=== PATIENT | male | born 1985 | race Caucasian/White ===

== ENCOUNTER → 2019-02-28 16:59 | Outpatient (CLI) | payer OTHER, MEDICAID, SELFPAY ==
--- NOTE | 2019-02-28 17:04 | DI.RAD.S_ITS ---
PROCEDURE: XR FINGER RT MIN 2V INDICATIONS: proximal phalanx pain TECHNIQUE: AP hand, 2 views of the second finger(s) acquired. COMPARISON: None. FINDINGS: Bones: No fractures or dislocations. No suspicious bony lesions. Soft tissues: No suspicious soft tissue calcifications. IMPRESSION: No trauma found. Dictated by: Norris Henderson M.D. on 02/28/2019 at 17:23 Approved by: Norris Henderson M.D. on 02/28/2019 at 17:23
== END ==
PROVIDERS: Visit Provider Physician Assistant
DX: M79.644 Pain in right finger(s) (principal)
CPT/HCPCS: 73140

== ENCOUNTER 2019-05-18 11:54 | Emergency (ER) | payer OTHER, MEDICAID, SELFPAY ==
[2019-05-18 12:18] VITALS: BP 134/64; PULSE 77; TEMP 36.7; O2SAT 99
[2019-05-18 12:22] VITALS: PULSE 77; TEMP 36.7; O2SAT 99; BMI 72.5
[2019-05-18 12:29] LABS: Add Manual Diff / Slide Review NO; Basophils Absolute Auto 100 /uL (0-100); Basophils Percent Auto 0.7 % (0-2); Eosinophils Absolute Auto 200 /uL (0-450); Eosinophils Percent Auto 2.6 % (2-4); Hematocrit 43.4 % (41-53); Hemoglobin 14.7 g/dL (13.5-17.5); Lymphocytes Absolute Auto 1500 /uL (1100-4500); Lymphocytes Percent Auto 16.9 % (25-40); Mean Corpuscular HGB Conc 33.8 % (30-36); Mean Corpuscular Hemoglobin 29.1 PG (26-34); Mean Corpuscular Volume 85.9 fL (80-100); Monocytes Absolute Auto 1100 /uL (0-900); Monocytes Percent Auto 12.8 % (3-14); Neutrophils Absolute Auto 5800 /uL (1500-7000); Platelet Count 265 X10^3/uL (150-400); Red Blood Cell Count 5.06 X10^6/uL (4.5-5.9); Red Cell Distribution Width 14.5 % (11.6-14.8); White Blood Cell Count 8.6 X10^3/uL (4.5-11.0)
--- NOTE | 2019-05-18 12:36 | ED.ABDPAIN ---
HPI - Abdominal Pain <JAYME Scruggs - Last Filed: 05/18/19 15:41> General Chief Complaint: Abdominal Pain Stated Complaint: flu Time Seen by Provider: 05/18/19 12:00 Source: patient Mode of arrival: Ambulatory Limitations: no limitations History of Present Illness HPI narrative: The patient is a 33-year-old male nonsmoker with history of morbid obesity who presents with his and for chief complaint of diarrhea for 4 days with associated abdominal cramping. He denies any objective fevers at home, but complains of muscle aches, chills sweats. He denies any chest pain or shortness of breath. He does have a history of asthma as well. He denies any ear pain or sore throat. He states he feels like he has the flu. He has not taken anything to feel better. He denies any chest pain or shortness of breath. He states that his diarrhea is watery, he had 3-4 episodes already today. Denies any dysuria urgency or frequency. Denies any history of abdominal surgeries. Related Data Home Medications Medication Instructions Recorded Confirmed hydroxyzine HCl 25 mg tablet 25 mg PO BID PRN 02/19/19 02/28/19 buspirone 15 mg PO DAILY 05/18/19 05/18/19 Previous Rx's Medication Instructions Recorded albuterol sulfate 90 mcg/actuation 2 puff INHALATION Q4-6H PRN #8.5 12/01/18 aerosol inhaler gram valsartan 160 1 tab PO DAILY #30 tab 12/01/18 mg-hydrochlorothiazide 25 mg tablet diclofenac sodium 1 % topical gel 2 gram TOP QID #100 gram 02/19/19 Allergies Allergy/AdvReac Type Severity Reaction Status Date / Time No Known Drug Allergies Allergy Verified 05/18/19 12:22 Review of Systems <JAYME Scruggs - Last Filed: 05/18/19 15:41> Review of Systems Narrative: GENERAL: See HPI HEENT: Denies sinus pain, ear pain, sore throat, difficulty swallowing, dizziness. RESPIRATORY: Denies dyspnea, cough, wheezing, hemoptysis, sputum. CARDIOVASCULAR: Denies chest pain, palpitations, orthopnea, edema, GASTROINTESTINAL: See HPI : Denies dysuria, frequency, incontinence, hematuria, urinary retention. MUSCULOSKELETAL: denies weakness, joint pain, or bony pain SKIN: Denies rash, skin lesions, or other NEUROLOGIC: Denies weakness, headache, numbness, change in speech, confusion, seizures, incoordination. PSYCHIATRIC: No concerning psychosocial issues. 12 point review of systems is negative except for those stated above Patient History <MAURA Scruggs-NAIN - Last Filed: 05/18/19 15:41> Social History Smoking Status: Never smoker Smoking Status: Never smoker Exam <JAYME Scruggs - Last Filed: 05/18/19 15:41> Narrative Exam Narrative: GENERAL: Morbidly obese male in no acute distress HEAD: Atraumatic. Normocephalic. No temporal or scalp tenderness. EYES: Pupils equal round and reactive. Extraocular motions intact. No scleral icterus. No injection or drainage. ENT: Nose without bleeding, purulent drainage or septal hematoma. Throat without erythema, tonsillar hypertrophy or exudate. Uvula midline. Airway patent. NECK: Trachea midline. No JVD or lymphadenopathy. Supple, nontender, no meningeal signs. CARDIOVASCULAR: Regular rate and rhythm RESPIRATORY: Clear to auscultation. Breath sounds equal bilaterally. No wheezes, rales, or rhonchi. No cough. No increased respiratory effort. No accessory muscle use. GASTROINTESTINAL: Abdomen soft, diffusely tender to palpation, nondistended. No hepato-splenomegaly, or palpable masses. No guarding. Active bowel sounds all 4 quadrants EXTREMITIES: No clubbing, cyanosis, or edema. No joint tenderness, effusion, or edema noted. BACK: Nontender without deformity or crepitance. No flank tenderness. NEURO: AOx3. SKIN: No rash or erythema on visible skin Initial Vital Signs Initial Vital Signs: Vital Signs Temperature 98.0 F 05/18/19 12:18 Pulse Rate 77 05/18/19 12:18 Blood Pressure 134/64 05/18/19 12:18 Pulse Oximetry 99 05/18/19 12:18 <Yanira Shepherd DO - Last Filed: 05/18/19 19:12> Initial Vital Signs Initial Vital Signs: Vital Signs Temperature 98.0 F 05/18/19 12:18 Pulse Rate 77 05/18/19 12:18 Blood Pressure 134/64 05/18/19 12:18 Pulse Oximetry 99 05/18/19 12:18 Course <SILVANA ScruggsP-BC - Last Filed: 05/18/19 15:41> Orders Ordered: ED Orders 05/18/19 12:04 Amylase Stat Complete Blood Count AUTO DIFF Stat Comprehensive Metabolic Panel Stat Lipase Stat Magnesium Stat 05/18/19 12:24 Influenza A & B (PCR) Stat 05/18/19 13:16 GI Panel (Film Array) Stat Discontinued Medications Sodium Chloride (Normal Saline 0.9%) 1,000 mls @ 1,000 mls/hr IV BOLUS ONE Stop: 05/18/19 13:10 Last Infusion: 05/18/19 14:30 Dose: 0 mls/hr Documented by: Admin: 05/18/19 12:58 Dose: 1,000 mls/hr Documented by: MEISENB Sodium Chloride (Normal Saline 0.9%) 1,000 mls @ 250 mls/hr IV CONT FRANC Last Infusion: 05/18/19 15:38 Dose: 0 mls/hr Documented by: Admin: 05/18/19 15:01 Dose: 250 mls/hr Documented by: MEISENB Metoclopramide HCl (Reglan) 10 mg IV NOW ONE Stop: 05/18/19 14:40 Last Admin: 05/18/19 15:01 Dose: 10 mg Documented by: [email or web address] Vital Signs Vital signs: Vital Signs - 8 hr 05/18/19 12:18 05/18/19 12:22 05/18/19 12:59 Temperature 98.0 F 98.0 F Pulse Rate 77 77 62 Respiratory Rate 16 Blood Pressure Blood Pressure [Left Wrist] 134/64 150/74 H Pulse Oximetry 99 99 95 05/18/19 15:38 Temperature 98.4 F Pulse Rate 65 Respiratory Rate Blood Pressure 109/64 Blood Pressure [Left Wrist] Pulse Oximetry 97 <Yanira Shepherd DO - Last Filed: 05/18/19 19:12> Orders Ordered: ED Orders 05/18/19 12:04 Amylase Stat Complete Blood Count AUTO DIFF Stat Comprehensive Metabolic Panel Stat Lipase Stat Magnesium Stat 05/18/19 12:24 Influenza A & B (PCR) Stat 05/18/19 13:16 GI Panel (Film Array) Stat Discontinued Medications Sodium Chloride (Normal Saline 0.9%) 1,000 mls @ 1,000 mls/hr IV BOLUS ONE Stop: 05/18/19 13:10 Last Infusion: 05/18/19 14:30 Dose: 0 mls/hr Documented by: [email or web address] Admin: 05/18/19 12:58 Dose: 1,000 mls/hr Documented by: GIULIANO Sodium Chloride (Normal Saline 0.9%) 1,000 mls @ 250 mls/hr IV CONT FRANC Last Infusion: 05/18/19 15:38 Dose: 0 mls/hr Documented by: Admin: 05/18/19 15:01 Dose: 250 mls/hr Documented by: GIULIANO Metoclopramide HCl (Reglan) 10 mg IV NOW ONE Stop: 05/18/19 14:40 Last Admin: 05/18/19 15:01 Dose: 10 mg Documented by: GIULIANO Vital Signs Vital signs: Vital Signs - 8 hr 05/18/19 12:18 05/18/19 12:22 05/18/19 12:59 Temperature 98.0 F 98.0 F Pulse Rate 77 77 62 Respiratory Rate 16 Blood Pressure Blood Pressure [Left Wrist] 134/64 150/74 H Pulse Oximetry 99 99 95 05/18/19 15:38 Temperature 98.4 F Pulse Rate 65 Respiratory Rate Blood Pressure 109/64 Blood Pressure [Left Wrist] Pulse Oximetry 97 MDM - Abdominal Pain <JAYME Scruggs - Last Filed: 05/18/19 15:41> Lab Data Result diagrams: 05/18/19 12:04 05/18/19 12:04 Labs: Lab Results 05/18/19 05/18/19 05/18/19 Range/Units 12:04 12:04 12:04 WBC 8.6 (4.5-11.0) X10^3/uL RBC 5.06 (4.5-5.9) X10^6/uL Hgb 14.7 (13.5-17.5) g/dL Hct 43.4 (41-53) % MCV 85.9 (80-100) fL MCH 29.1 (26-34) PG MCHC 33.8 (30-36) % RDW 14.5 (11.6-14.8) % Plt Count 265 (150-400) X10^3/uL Neut % (Auto) 67.0 (50-75) % Lymph % (Auto) 16.9 L (25-40) % [place] % (Auto) 12.8 (3-14) % Eos % (Auto) 2.6 (2-4) % Baso % (Auto) 0.7 (0-2) % Neut # (Auto) 5800 (0616-5328) /uL Lymph # (Auto) 1500 (3176-2707) /uL [place] # (Auto) 1100 H (0-900) /uL Eos # (Auto) 200 (0-450) /uL Baso # (Auto) 100 (0-100) /uL Sodium 136 L (137-145) mmol/L Potassium 3.5 (3.4-5.1) mmol/L Chloride 103 (98-107) mmol/L Carbon Dioxide 24 (22-32) mmol/L BUN 9 (9-20) mg/dL Creatinine 1.00 (0.66-1.25) mg/dL Estimated GFR > 60.0 (>60) mL/min BUN/Creatinine Ratio 9.0 (6-22) Glucose 106 H (70-100) mg/dL Calcium 9.0 (8.4-10.2) mg/dL Magnesium 2.0 (1.6-2.3) mg/dL Total Bilirubin 0.6 (0.2-1.3) mg/dL AST 32 (17-59) IU/L ALT 30 (<50) IU/L Alkaline Phosphatase 99 (38-126) U/L Total Protein 7.2 (6.3-8.2) g/dL Albumin 4.1 (3.5-5.0) g/dL Globulin 3.1 (1.7-4.1) g/dL Albumin/Globulin Ratio 1.3 (1.0-2.8) Amylase 36 (30-110) U/L Lipase 41 (23-300) U/L Gastric Fluid pH Gastric Occult Blood Stl C. cayetanensis PCR (Not Detect) Stool Rotavirus (PCR) (Not Detect) Stool Adenovirus (PCR) (Not Detect) Stool Astrovirus (PCR) (Not Detect) Stool Cryptosporidium PCR (Not Detect) Stl E.coli Shiga Tox PCR (Not Detect) St Sh/Enteroin Ecoli PCR (Not Detect) Stool E coli O157 PCR Stl Enterotoxigenic E PCR (Not Detect) Stool EPEC (PCR) (Not Detect) Stl E. histolytica PCR (Not Detect) Stool Giardia Lamblia PCR (Not Detect) Stool Sapovirus (PCR) (Not Detect) Stl P. shigelloides PCR (Not Detect) St Y.enterocolitica PCR (Not Detect) Stool Vibrio (PCR) (Not Detect) Stl Vibrio cholerae PCR (Not Detect) Stl Enteroaggr Ecoli PCR (Not Detect) Stl Norovirus GI/GII PCR (Not Detect) Campylobacter (PCR) (Not Detect) C. difficile Tox (PCR) (Not Detect) Influenza A (RT-PCR) (NEGATIVE) Influenza B (RT-PCR) (NEGATIVE) Salmonella (PCR) (Not Detect) 05/18/19 05/18/19 05/18/19 Range/Units 12:24 13:16 13:20 WBC (4.5-11.0) X10^3/uL RBC (4.5-5.9) X10^6/uL Hgb (13.5-17.5) g/dL Hct (41-53) % MCV (80-100) fL MCH (26-34) PG MCHC (30-36) % RDW (11.6-14.8) % Plt Count (150-400) X10^3/uL Neut % (Auto) (50-75) % Lymph % (Auto) (25-40) % [place] % (Auto) (3-14) % Eos % (Auto) (2-4) % Baso % (Auto) (0-2) % Neut # (Auto) (9476-3236) /uL Lymph # (Auto) (1113-5189) /uL [place] # (Auto) (0-900) /uL Eos # (Auto) (0-450) /uL Baso # (Auto) (0-100) /uL Sodium (137-145) mmol/L Potassium (3.4-5.1) mmol/L Chloride (98-107) mmol/L Carbon Dioxide (22-32) mmol/L BUN (9-20) mg/dL Creatinine (0.66-1.25) mg/dL Estimated GFR (>60) mL/min BUN/Creatinine Ratio (6-22) Glucose (70-100) mg/dL Calcium (8.4-10.2) mg/dL Magnesium (1.6-2.3) mg/dL Total Bilirubin (0.2-1.3) mg/dL AST (17-59) IU/L ALT (<50) IU/L Alkaline Phosphatase (38-126) U/L Total Protein (6.3-8.2) g/dL Albumin (3.5-5.0) g/dL Globulin (1.7-4.1) g/dL Albumin/Globulin Ratio (1.0-2.8) Amylase (30-110) U/L Lipase (23-300) U/L Gastric Fluid pH Cancelled Gastric Occult Blood Cancelled Stl C. cayetanensis PCR Not detected (Not Detect) Stool Rotavirus (PCR) Not detected (Not Detect) Stool Adenovirus (PCR) Not detected (Not Detect) Stool Astrovirus (PCR) Not detected (Not Detect) Stool Cryptosporidium PCR Not detected (Not Detect) Stl E.coli Shiga Tox PCR Not detected (Not Detect) St Sh/Enteroin Ecoli PCR Not detected (Not Detect) Stool E coli O157 PCR Not Reportable Stl Enterotoxigenic E PCR Not detected (Not Detect) Stool EPEC (PCR) Not detected (Not Detect) Stl E. histolytica PCR Not detected (Not Detect) Stool Giardia Lamblia PCR Not detected (Not Detect) Stool Sapovirus (PCR) Not detected (Not Detect) Stl P. shigelloides PCR Not detected (Not Detect) St Y.enterocolitica PCR Not detected (Not Detect) Stool Vibrio (PCR) Not detected (Not Detect) Stl Vibrio cholerae PCR Not detected (Not Detect) Stl Enteroaggr Ecoli PCR Not detected (Not Detect) Stl Norovirus GI/GII PCR Not detected (Not Detect) Campylobacter (PCR) Detected H (Not Detect) C. difficile Tox (PCR) Not detected (Not Detect) Influenza A (RT-PCR) Flu a negative (NEGATIVE) Influenza B (RT-PCR) Flu b negative (NEGATIVE) Salmonella (PCR) Not detected (Not Detect) Point of care testing: Urine Dip Bedside Urine Glucose Negative Bedside Urine Bilirubin - Negative Bedside Urine Ketone - Negative Urine Specific [place] 1.005 Bedside Urine Occult Blood - Negative Bedside Urine pH 7.0 Bedside Urine Protein - Negative Bedside Urine Urobilinogen - Negative Bedside Urine Nitrite - Negative Bedside Urine Leukocytes - Negative Esterase MDM Narrative Medical decision making narrative: The patient is a 33-year-old morbidly obese male who presents with a chief complaint of diarrhea for 4 days. Electrolytes are grossly within normal limits. No leukocytosis is reassuring. Stool test is positive for Campylobacter. Discussed at length the self-limiting nature of the illness, encourage pushing fluids, courage to avoiding acidic deep fried etcetera foods. Discussed a simple diet initially. Encouraged follow-up with primary care provider in the next few days. Discussed at length coming back to ER for acute concerns such as inability keep down fluids etcetera. Patient has no questions or concerns upon discharge and states understanding of return precautions as well as follow-up care. <Yanira Shepherd, DO - Last Filed: 05/18/19 19:12> Lab Data Labs: Lab Results 05/18/19 05/18/19 05/18/19 Range/Units 12:04 12:04 12:04 WBC 8.6 (4.5-11.0) X10^3/uL RBC 5.06 (4.5-5.9) X10^6/uL Hgb 14.7 (13.5-17.5) g/dL Hct 43.4 (41-53) % MCV 85.9 (80-100) fL MCH 29.1 (26-34) PG MCHC 33.8 (30-36) % RDW 14.5 (11.6-14.8) % Plt Count 265 (150-400) X10^3/uL Neut % (Auto) 67.0 (50-75) % Lymph % (Auto) 16.9 L (25-40) % [place] % (Auto) 12.8 (3-14) % Eos % (Auto) 2.6 (2-4) % Baso % (Auto) 0.7 (0-2) % Neut # (Auto) 5800 (6706-9747) /uL Lymph # (Auto) 1500 (6703-3262) /uL [place] # (Auto) 1100 H (0-900) /uL Eos # (Auto) 200 (0-450) /uL Baso # (Auto) 100 (0-100) /uL Sodium 136 L (137-145) mmol/L Potassium 3.5 (3.4-5.1) mmol/L Chloride 103 (98-107) mmol/L Carbon Dioxide 24 (22-32) mmol/L BUN 9 (9-20) mg/dL Creatinine 1.00 (0.66-1.25) mg/dL Estimated GFR > 60.0 (>60) mL/min BUN/Creatinine Ratio 9.0 (6-22) Glucose 106 H (70-100) mg/dL Calcium 9.0 (8.4-10.2) mg/dL Magnesium 2.0 (1.6-2.3) mg/dL Total Bilirubin 0.6 (0.2-1.3) mg/dL AST 32 (17-59) IU/L ALT 30 (<50) IU/L Alkaline Phosphatase 99 (38-126) U/L Total Protein 7.2 (6.3-8.2) g/dL Albumin 4.1 (3.5-5.0) g/dL Globulin 3.1 (1.7-4.1) g/dL Albumin/Globulin Ratio 1.3 (1.0-2.8) Amylase 36 (30-110) U/L Lipase 41 (23-300) U/L Gastric Fluid pH Gastric Occult Blood Stl C. cayetanensis PCR (Not Detect) Stool Rotavirus (PCR) (Not Detect) Stool Adenovirus (PCR) (Not Detect) Stool Astrovirus (PCR) (Not Detect) Stool Cryptosporidium PCR (Not Detect) Stl E.coli Shiga Tox PCR (Not Detect) St Sh/Enteroin Ecoli PCR (Not Detect) Stool E coli O157 PCR Stl Enterotoxigenic E PCR (Not Detect) Stool EPEC (PCR) (Not Detect) Stl E. histolytica PCR (Not Detect) Stool Giardia Lamblia PCR (Not Detect) Stool Sapovirus (PCR) (Not Detect) Stl P. shigelloides PCR (Not Detect) St Y.enterocolitica PCR (Not Detect) Stool Vibrio (PCR) (Not Detect) Stl Vibrio cholerae PCR (Not Detect) Stl Enteroaggr Ecoli PCR (Not Detect) Stl Norovirus GI/GII PCR (Not Detect) Campylobacter (PCR) (Not Detect) C. difficile Tox (PCR) (Not Detect) Influenza A (RT-PCR) (NEGATIVE) Influenza B (RT-PCR) (NEGATIVE) Salmonella (PCR) (Not Detect) 05/18/19 05/18/19 05/18/19 Range/Units 12:24 13:16 13:20 WBC (4.5-11.0) X10^3/uL RBC (4.5-5.9) X10^6/uL Hgb (13.5-17.5) g/dL Hct (41-53) % MCV (80-100) fL MCH (26-34) PG MCHC (30-36) % RDW (11.6-14.8) % Plt Count (150-400) X10^3/uL Neut % (Auto) (50-75) % Lymph % (Auto) (25-40) % [place] % (Auto) (3-14) % Eos % (Auto) (2-4) % Baso % (Auto) (0-2) % Neut # (Auto) (0192-0065) /uL Lymph # (Auto) (7797-5204) /uL [place] # (Auto) (0-900) /uL Eos # (Auto) (0-450) /uL Baso # (Auto) (0-100) /uL Sodium (137-145) mmol/L Potassium (3.4-5.1) mmol/L Chloride (98-107) mmol/L Carbon Dioxide (22-32) mmol/L BUN (9-20) mg/dL Creatinine (0.66-1.25) mg/dL Estimated GFR (>60) mL/min BUN/Creatinine Ratio (6-22) Glucose (70-100) mg/dL Calcium (8.4-10.2) mg/dL Magnesium (1.6-2.3) mg/dL Total Bilirubin (0.2-1.3) mg/dL AST (17-59) IU/L ALT (<50) IU/L Alkaline Phosphatase (38-126) U/L Total Protein (6.3-8.2) g/dL Albumin (3.5-5.0) g/dL Globulin (1.7-4.1) g/dL Albumin/Globulin Ratio (1.0-2.8) Amylase (30-110) U/L Lipase (23-300) U/L Gastric Fluid pH Cancelled Gastric Occult Blood Cancelled Stl C. cayetanensis PCR Not detected (Not Detect) Stool Rotavirus (PCR) Not detected (Not Detect) Stool Adenovirus (PCR) Not detected (Not Detect) Stool Astrovirus (PCR) Not detected (Not Detect) Stool Cryptosporidium PCR Not detected (Not Detect) Stl E.coli Shiga Tox PCR Not detected (Not Detect) St Sh/Enteroin Ecoli PCR Not detected (Not Detect) Stool E coli O157 PCR Not Reportable Stl Enterotoxigenic E PCR Not detected (Not Detect) Stool EPEC (PCR) Not detected (Not Detect) Stl E. histolytica PCR Not detected (Not Detect) Stool Giardia Lamblia PCR Not detected (Not Detect) Stool Sapovirus (PCR) Not detected (Not Detect) Stl P. shigelloides PCR Not detected (Not Detect) St Y.enterocolitica PCR Not detected (Not Detect) Stool Vibrio (PCR) Not detected (Not Detect) Stl Vibrio cholerae PCR Not detected (Not Detect) Stl Enteroaggr Ecoli PCR Not detected (Not Detect) Stl Norovirus GI/GII PCR Not detected (Not Detect) Campylobacter (PCR) Detected H (Not Detect) C. difficile Tox (PCR) Not detected (Not Detect) Influenza A (RT-PCR) Flu a negative (NEGATIVE) Influenza B (RT-PCR) Flu b negative (NEGATIVE) Salmonella (PCR) Not detected (Not Detect) Point of care testing: Urine Dip Bedside Urine Glucose Negative Bedside Urine Bilirubin - Negative Bedside Urine Ketone - Negative Urine Specific [place] 1.005 Bedside Urine Occult Blood - Negative Bedside Urine pH 7.0 Bedside Urine Protein - Negative Bedside Urine Urobilinogen - Negative Bedside Urine Nitrite - Negative Bedside Urine Leukocytes - Negative Esterase Discharge Plan Departure Patient Disposition: Home Clinical Impression: Campylobacter diarrhea Discharge Date/Time: 05/18/19 15:39 Instructions: DI for Bacterial Gastroenteritis -- Adult Activity Restrictions/Additional Instructions: Your stool tested positive for Campylobacter today. This is usually self-limiting diarrheal illness. Please push fluids. Please eat a simple diet, focus on fluids, avoid any spicy, fried, fatty foods in the next few days Please follow-up with primary care provider in the next few days. They may want to keep an eye on your electrolytes Please come back to the emergency department for any acute concerns Prescriptions: No Action albuterol sulfate 90 mcg/actuation HFA aerosol inhaler 2 puff INHALATION Q4-6H PRN (Reason: bronchospasm) Qty: 8.5 RF: 0 valsartan-hydrochlorothiazide 160-25 mg tablet 1 tab PO DAILY Qty: 30 RF: 0 hydroxyzine HCl 25 mg tablet 25 mg PO BID PRN (Reason: as directed) RF: 0 diclofenac sodium 1 % gel 2 gram TOP QID Qty: 100 RF: 0 buspirone 5 mg tablet 15 mg PO DAILY RF: 0
[2019-05-18 12:40] LABS: Alanine Aminotransferase 30 IU/L (<50); Albumin 4.1 g/dL (3.5-5.0); Albumin Globulin Ratio 1.3 (1.0-2.8); Alkaline Phosphatase 99 U/L (38-126); Amylase 36 U/L (30-110); Aspartate Aminotransferase 32 IU/L (17-59); Bilirubin Total 0.6 mg/dL (0.2-1.3); Blood Urea Nitrogen 9 mg/dL (9-20); Carbon Dioxide 24 mmol/L (22-32); Chloride 103 mmol/L (98-107); Estimated Glomerular Filt Rate > 60.0 mL/min (>60); Globulin 3.1 g/dL (1.7-4.1); Glucose 106 mg/dL (70-100); HEMOLYSIS 20 (0-50); Lipase 41 U/L (23-300); Potassium 3.5 mmol/L (3.4-5.1); Sodium 136 mmol/L (137-145); Total Protein 7.2 g/dL (6.3-8.2)
[2019-05-18] MEDS: SODIUM CHLORIDE 0.9% 1,000 ML 1000 ML IV (12:58)
[2019-05-18 12:59] VITALS: BP 150/74; PULSE 62; RESP 16; O2SAT 95
[2019-05-18 13:04] LABS: Influenza A - CEPHEID Flu A NEGATIVE (NEGATIVE); Influenza B - CEPHEID Flu B NEGATIVE (NEGATIVE)
--- NOTE | 2019-05-18 13:36 | PC.NURSE ---
denies anticoagulant, denies nsaids, denies vomiting.
[2019-05-18 15:00] LABS: Clostridium difficile toxin AB Not Detected (Not Detect); Plesiomonsa shigelloides Not Detected (Not Detect); Salmonella Not Detected (Not Detect)
[2019-05-18 15:01] LABS: Adenovirus F 40/41 Not Detected (Not Detect); Astrovirus Not Detected (Not Detect); Cryptosporidium Not Detected (Not Detect); Cyclospora cayetanensis Not Detected (Not Detect); Entamoeba histolytica Not Detected (Not Detect); Enteroaggregative E.coli Not Detected (Not Detect); Enteropathogenic E.coli Not Detected (Not Detect); Enterotoxigenic E.coli It/st Not Detected (Not Detect); Giardia lamblia Not Detected (Not Detect); Norovirus GI/GII Not Detected (Not Detect); Rotavirus A Not Detected (Not Detect); Sapovirus Not Detected (Not Detect); Shiga-like toxin-prod E.coli Not Detected (Not Detect); Shigella/Enteroinvasive E.coli Not Detected (Not Detect); Vibrio Not Detected (Not Detect); Vibrio cholerae Not Detected (Not Detect); Yersinia enterocolitica Not Detected (Not Detect)
[2019-05-18] MEDS: SODIUM CHLORIDE 0.9% 1,000 ML 250 ML IV (15:01)
[2019-05-18] MEDS: METOCLOPRAMIDE 10 MG/2 ML INJ IV (15:01)
[2019-05-18 15:02] LABS: Campylobacter Detected (Not Detect)
[2019-05-18 15:38] VITALS: BP 109/64; PULSE 65; TEMP 36.9; O2SAT 97
== END 2019-05-18 15:39 | disposition home or self-care (01) ==
PROVIDERS: Emergency Provider Nurse Practitioner Family
DX: A04.5 Campylobacter enteritis (principal)
CPT/HCPCS: 36415; 80053; 81003; 82150; 83690; 83735; 85025; 87502; 87507; 96361; 96374; 99284; J2765

== ENCOUNTER 2020-02-22 07:29 | Emergency (ER) | payer OTHER, MEDICAID, SELFPAY ==
[2020-02-22 07:34] VITALS: BP 161/91; PULSE 90; RESP 24; O2SAT 97; BMI 81.0
--- NOTE | 2020-02-22 07:36 | ED.ARRPALP ---
HPI - Arrhythmia/Palpitations General Chief Complaint: Arrhythmia/Palpitations Stated Complaint: A-fib Time Seen by Provider: 02/22/20 07:30 Source: patient and EMS Mode of arrival: EMS Limitations: no limitations History of Present Illness HPI narrative: Patient is a 36-year-old male. History of bipolar disorder, hypertension and AFib here for evaluation of AFib. Patient states that approximately 1 year ago he had a episode of AFib that brought him to the emergency department. He states that he was given a ?beta-gomez ?through the IV and he converted back into sinus rhythm news discharged home. Has not had any issues with it since then. He states that this morning he woke up. Walk to go urinate and when he got back into bed and turned on his side he felt the onset of his heart fluttering. He did feel like his heart was beating fast. He did feel somewhat lightheaded will short of breath. He does admit that the symptoms have improved somewhat when he is sitting but he states that if he gets up and walks around he is going to feel the symptoms return. Related Data Home Medications Medication Instructions Recorded Confirmed hydroxyzine HCl 25 mg tablet 25 mg PO BID PRN 02/19/19 02/28/19 buspirone 15 mg PO DAILY 05/18/19 05/18/19 Previous Rx's Medication Instructions Recorded albuterol sulfate 90 mcg/actuation 2 puff INHALATION Q4-6H PRN #8.5 12/01/18 aerosol inhaler gram valsartan 160 1 tab PO DAILY #30 tab 12/01/18 mg-hydrochlorothiazide 25 mg tablet diclofenac sodium 1 % topical gel 2 gram TOP QID #100 gram 02/19/19 Allergies Allergy/AdvReac Type Severity Reaction Status Date / Time No Known Drug Allergies Allergy Verified 02/22/20 07:34 Review of Systems Constitutional Constitutional: Denies fatigue, Denies fever(s) and Denies headache(s) Eyes Eyes: Denies change in vision ENT Ears, Nose, Mouth, and Throat: Denies headache(s) Cardiovascular Cardiovascular: Denies chest pain, Reports rapid heart rate, Reports irregular heart rhythm and Reports dyspnea on exertion Respiratory Respiratory: Reports dyspnea on exertion Gastrointestinal Gastrointestinal: Denies abdominal pain, Denies nausea and Denies vomiting Genitourinary Genitourinary: Denies dysuria Genitourinary: Denies dysuria Musculoskeletal Musculoskeletal: Denies arthralgias and Denies myalgias Integumentary/Breasts Skin/Breast: Denies rash Neurologic Neurologic: Denies behavioral changes and Denies headache(s) Psychiatric Psychiatric: Denies behavioral changes Endocrine Endocrine: Denies fatigue Hematologic/Lymphatic Hematologic/Lymphatic: Denies easy bleeding and Denies easy bruising Allergic/Immunologic Allergic/Immunologic: Denies urticaria Patient History Medical History Afib (Acute) Anxiety (Acute) Hypertension (Acute) Social History Smoking Status: Never smoker Smoking Status: Never smoker Exam Initial Vital Signs Initial Vital Signs: Vital Signs Pulse Rate 90 02/22/20 07:34 Respiratory Rate 24 02/22/20 07:34 Blood Pressure 161/91 H 02/22/20 07:34 Pulse Oximetry 97 02/22/20 07:34 Const General: cooperative and comfortable Limitations: mental status not altered HENMT Head: normal to inspection and normocephalic Resp Effort & Inspection: normal respiratory effort Auscultation: clear to auscultation bilaterally Cardio Rate: regular rate Rhythm: abnormal rhythm Pulses: radial pulses present GI Inspection: non-distended Palpation: soft Skin Lesions: no lesions Rashes: no rashes Neuro General: patient alert and patient awake Cognition: normal cognition Speech: speech normal Extrem General: normal to inspection and capillary refill normal Psych Appearance: grossly normal and well kempt Procedures Cardioversion Consent Signed: Yes Indication: AFib Stability: Stable Number of attempts (shocks): 3 Joules used: 150 (One time) and 200 (2 times) Cardiac rhythm post-cardioversion: Sinus rhythm Procedural Sedation Consent signed: Yes Time out performed: Yes Indication: cardioversion Presedation Evaluation: AFib ASA Class: II Mallampati Airway Classification: Class I Preparation: environmental monitoring technician applied, pulse oximeter, capnometry used, supplemental O2 applied, suction/airway equipment at bedside and IV secured Fentanyl: IV Fentanyl dose (mcg): 50 IV Propofol dose (mg): 250 ED Sedation Level: Moderate (Concious) Patient Tolerated Procedure: No complications Complications: none Scores GCS Maryanne coma scale eye opening: Spontaneous [place] coma scale verbal response: Orientated Maryanne coma scale motor response: Obey commands Maryanne coma scale total score: 15 Course Orders Ordered: ED Orders 02/22/20 07:30 EKG-12 Lead Stat 02/22/20 07:47 RT Consult Eval and Treat Now Discontinued Medications Fentanyl (Sublimaze) 50 mcg IV NOW ONE Stop: 02/22/20 07:48 Last Admin: 02/22/20 08:01 Dose: 50 mcg Documented by: NANCI Lorazepam (Ativan) 1 mg IV NOW ONE Stop: 02/22/20 07:47 Last Admin: 02/22/20 08:38 Dose: Not Given Documented by: NANCI Propofol (Diprivan) 300 mg IV NOW ONE Stop: 02/22/20 07:48 Last Admin: 02/22/20 08:03 Dose: 300 mg Documented by: NANCI Vital Signs Vital signs: Vital Signs - 8 hr 02/22/20 07:34 02/22/20 08:23 Pulse Rate 90 67 Respiratory Rate 24 18 Blood Pressure 161/91 H 121/86 Pulse Oximetry 97 99 MDM - Arrhythmia/Palpitations ECG Data Attestation: I personally reviewed and interpreted this ECG as follows: Prior ECG tracings: not available for review Interpretation: Atrial fibrillation Ventricular rate of 94 Normal axis Normal QRS QTC for [address] T wave changes Post cardioversion EKG Sinus rhythm Ventricular rate is 62 First-degree AV block with a pure interval to 1 4 milliseconds Normal QTC No ST T wave changes MDM Narrative Medical decision making narrative: Patient's AFib started this morning. He was rate controlled however was definitely in AFib by EKG. Discussed with him the options to include medications verses watching and waiting versus cardioversion and the risks and benefits of each of these. After this discussion the patient after for the cardioversion. Consent was signed. Given his weight he was sedated 1st with 50 micro g of fentanyl and then 250 mg of propofol. This was given NA 100 mg then 2nd 100 mg then 50 mg aliquots. First attempt at 150 joules was not successful. It was then increased to 200 joules and the 2nd attempt was unsuccessful. A 3rd attempt to 200 joules was successful at cardioversion. Afterwards patient stated that he tolerated the procedure well. Did not remember or feel any the procedure. Was satisfied with the procedure. He recovered from the sedation. Informed the patient that he needed to talk with his primary doctor. He is given return precautions. He expressed understanding and agreement. Discharge Plan Departure Patient Disposition: Home Clinical Impression: Atrial fibrillation Qualifiers: Atrial fibrillation type: paroxysmal Qualified Code(s): I48.0 - Paroxysmal atrial fibrillation Instructions: DI for Cardioversion, DI for Atrial Fibrillation Activity Restrictions/Additional Instructions: I do recommend that you talk with her primary provider about your issues with atrial fibrillation and to discuss the indications for any further workup. You have no restrictions on your activities except for not driving for the rest the day because of the sedation that you received. Return to the emergency department for any new or worsening symptoms. Continue the rest her medications as directed. Prescriptions: No Action albuterol sulfate 90 mcg/actuation HFA aerosol inhaler 2 puff INHALATION Q4-6H PRN (Reason: bronchospasm) Qty: 8.5 RF: 0 valsartan-hydrochlorothiazide 160-25 mg tablet 1 tab PO DAILY Qty: 30 RF: 0 hydroxyzine HCl 25 mg tablet 25 mg PO BID PRN (Reason: as directed) RF: 0 diclofenac sodium 1 % gel 2 gram TOP QID Qty: 100 RF: 0 buspirone 5 mg tablet 15 mg PO DAILY RF: 0
[2020-02-22] MEDS: fentaNYL 100 MCG/2 ML INJ 50 MCG IV (08:01)
[2020-02-22] MEDS: propofoL 200 MG/20 ML VIAL 300 MG IV (08:03)
--- NOTE | 2020-02-22 08:18 | PC.NURSE ---
cardioversion performed by x1 @ 150 lana x2 @200 lana with effect
[2020-02-22 08:23] VITALS: BP 121/86; PULSE 67; RESP 18; O2SAT 99
--- NOTE | 2020-02-22 08:23 | PC.NURSE ---
pt [id number] on
--- NOTE | 2020-02-22 08:45 | PC.NURSE ---
pt provided with po intake tolorating well
--- NOTE | 2020-02-22 09:08 | PC.NURSE ---
iv removed pt ambulatory in room steady gait no distress noted none stated
[2020-02-22 09:19] VITALS: BP 122/75; PULSE 68; RESP 18; O2SAT 99
== END 2020-02-22 09:21 | disposition home or self-care (01) ==
LOC: ED 09:20
PROVIDERS: Emergency Provider Emergency Medicine
DX: I48.0 Paroxysmal atrial fibrillation (principal); R06.00 Dyspnea, unspecified
CPT/HCPCS: 92960; 93005; 99284; 99285; J2704; J3010

== ENCOUNTER 2020-06-19 00:09 | Emergency (ER) | payer OTHER, MEDICAID, SELFPAY ==
[2020-06-19 00:12] VITALS: BP 169/85; PULSE 77; RESP 20; TEMP 36.2; O2SAT 96; BMI 63.3
--- NOTE | 2020-06-19 01:01 | ED_ITS ---
HPI - Male Genitourinary General Chief complaint: Urogenital-Male Stated complaint: states Priaprism Time Seen by Provider: 06/19/20 00:51 Source: patient Mode of arrival: Ambulatory History of Present Illness HPI Narrative: Patient brought here by a friend. Complains of priapism. Past 10 hours. Denies any sexual activity. Denies taking any erectile dysfunction medications. Patient started new medication prazosin 2 months ago. Had 1 episode of priapism last month that resolved spontaneously. This afternoon occurred again without any resolution. Related Data Home Medications Medication Instructions Recorded Confirmed hydroxyzine HCl 25 mg tablet 25 mg PO BID PRN 02/19/19 02/28/19 buspirone 15 mg PO DAILY 05/18/19 05/18/19 Previous Rx's Medication Instructions Recorded albuterol sulfate 90 mcg/actuation 2 puff INHALATION Q4-6H PRN #8.5 12/01/18 aerosol inhaler gram valsartan 160 1 tab PO DAILY #30 tab 12/01/18 mg-hydrochlorothiazide 25 mg tablet diclofenac sodium 1 % topical gel 2 gram TOP QID #100 gram 02/19/19 Allergies Allergy/AdvReac Type Severity Reaction Status Date / Time No Known Drug Allergies Allergy Verified 02/22/20 07:34 Review of Systems Review of Systems Narrative: GENERAL: Denies chills, fatigue, malaise, fever, sweats. : Denies dysuria, frequency, hematuria, complains priapism MUSCULOSKELETAL: denies muscle or bony pain SKIN: Denies rash, NEUROLOGIC: Denies weakness, headache, numbness, change in speech, confusion ROS Unobtainable: All systems reviewed & are unremarkable except as noted in HPI and below Patient History Medical History (Updated 06/19/20 @ 01:03 by Lemuel Mcclure MD) Afib Anxiety Hypertension Social History Smoking Status: Never smoker Smoking Status: Never smoker alcohol intake frequency: holidays/special occasions only Substance Use Type: marijuana Exam Narrative Exam Narrative: GENERAL: patient appears stated age. Well-nourished, well- developed patient, in no distress, not toxic not dyspneic HEAD: Normocephalic. BACK: Nontender without deformity or crepitance. No flank tenderness : Erection noted. Surrounding skin shows HPV lesions. Patient is not circumcised NEURO: AOx4. SKIN: Warm and dry PSYCH: Slightly anxious, is cooperative Initial Vital Signs Initial Vital Signs: Vital Signs Temperature 97.2 F L 06/19/20 00:12 Pulse Rate 77 06/19/20 00:12 Respiratory Rate 20 06/19/20 00:12 Blood Pressure 169/85 H 06/19/20 00:12 Pulse Oximetry 96 06/19/20 00:12 Course Orders Ordered: Discontinued Medications Phenylephrine HCl (Phenylephrine 10,000 Mcg/Ml Vial) 500 mcg IM NOW ONE Stop: 06/19/20 01:19 Reevaluation(s) Reevaluation #1: Spontaneous resolution of correction/priapism. Patient feels much better. Patient able to urinate without any difficulty Time: 01:26 Consultations Consultation #1: Spoke with Dr. Pena, urologist on-call for here. Unable to help with procedure. Ongoing for 10 hours likely impotence will occur. Likely has blood clots already established. Recommends patient to be transferred Time: 01:04 Consultation #2: Spoke with Dr. Marco A Peralta, urology [facility]. Recommends on-call urology here to help. Time: 01:07 Consultation #3: Spoke with Dr. Pena, will come in Time: 01:16 Additional Consultation(s): Time 1:[address] Pena again. Priapism has resolved spontaneously. No further actions recommended. Vital Signs Vital signs: Vital Signs - 8 hr 06/19/20 00:12 Temperature 97.2 F L Pulse Rate 77 Respiratory Rate 20 Blood Pressure 169/85 H Pulse Oximetry 96 MDM - Male Genitourinary MDM Narrative Medical decision making narrative: Appropriate for discharge home. Patient able to urinate while here after resolution of erection Discharge Plan Departure Patient Disposition: Home Clinical Impression: Priapism Instructions: DI for Priapism Activity Restrictions/Additional Instructions: Contact your provider regarding replacing prazosin. This appears to be causing priapism. Contact office today. Return if worse or any questions or concerns. Prescriptions: No Action albuterol sulfate 90 mcg/actuation HFA aerosol inhaler 2 puff INHALATION Q4-6H PRN (Reason: bronchospasm) Qty: 8.5 RF: 0 valsartan-hydrochlorothiazide 160-25 mg tablet 1 tab PO DAILY Qty: 30 RF: 0 hydroxyzine HCl 25 mg tablet 25 mg PO BID PRN (Reason: as directed) RF: 0 diclofenac sodium 1 % gel 2 gram TOP QID Qty: 100 RF: 0 buspirone 5 mg tablet 15 mg PO DAILY RF: 0
== END 2020-06-19 01:45 | disposition home or self-care (01) ==
PROVIDERS: Emergency Provider Emergency Medicine
DX: N48.30 Priapism, unspecified (principal)
CPT/HCPCS: 99281

== ENCOUNTER 2020-09-07 03:27 | Emergency (ER) | payer OTHER, MEDICAID, SELFPAY ==
[2020-09-07] VITALS (8 sets, daily range): BP systolic 117–140; BP diastolic 61–82; PULSE 62–80; RESP 10–21; TEMP 36.6; O2SAT 96–98; BMI 63.3
[2020-09-07 04:03] LABS: Add Manual Diff / Slide Review NO; Basophils Absolute Auto 100 /uL (0-100); Basophils Percent Auto 1.2 % (0-2); Eosinophils Absolute Auto 300 /uL (0-450); Eosinophils Percent Auto 2.7 % (2-4); Hematocrit 41.1 % (41-53); Hemoglobin 13.8 g/dL (13.5-17.5); Lymphocytes Absolute Auto 3700 /uL (1100-4500); Lymphocytes Percent Auto 36.3 % (25-40); Mean Corpuscular HGB Conc 33.5 % (30-36); Mean Corpuscular Hemoglobin 29.1 PG (26-34); Monocytes Absolute Auto 900 /uL (0-900); Monocytes Percent Auto 8.5 % (3-14); Neutrophils Absolute Auto 5300 /uL (1500-7000); Neutrophils Percent Auto 51.3 % (50-75); Platelet Count 217 X10^3/uL (150-400); Red Blood Cell Count 4.73 X10^6/uL (4.5-5.9); Red Cell Distribution Width 14.1 % (11.6-14.8); White Blood Cell Count 10.3 X10^3/uL (4.5-11.0)
[2020-09-07 04:12] LABS: INR 1.2 (0.9-1.3); Prothrombin Time 13.4 SECONDS (10.1-12.7)
[2020-09-07 04:17] LABS: Alanine Aminotransferase 16 IU/L (<50); Albumin 3.8 g/dL (3.5-5.0); Albumin Globulin Ratio 1.4 (1.0-2.8); Alkaline Phosphatase 90 U/L (38-126); Aspartate Aminotransferase 21 IU/L (17-59); BUN Creatinine Ratio 14.4 (6-22); Bilirubin Total 0.3 mg/dL (0.2-1.3); Blood Urea Nitrogen 16 mg/dL (9-20); Calcium 9.1 mg/dL (8.4-10.2); Carbon Dioxide 29 mmol/L (22-32); Chloride 102 mmol/L (98-107); Creatine Kinase 82 U/L (55-170); Estimated Glomerular Filt Rate > 60.0 mL/min (>60); Globulin 2.8 g/dL (1.7-4.1); Glucose 108 mg/dL (70-100); HEMOLYSIS < 15 (0-50); Magnesium 1.8 mg/dL (1.6-2.3); Potassium 3.8 mmol/L (3.4-5.1); Sodium 136 mmol/L (137-145); Total Protein 6.6 g/dL (6.3-8.2)
[2020-09-07 04:28] LABS: NT-proBNP (BNP-Adult 18+) 35 pg/mL (<125); Troponin I < 0.012 ng/mL (0.01-0.034)
--- NOTE | 2020-09-07 04:37 | ED_ITS ---
HPI - Arrhythmia/Palpitations General Chief Complaint: Arrhythmia/Palpitations Stated Complaint: heart beating hard/rapidly 2 days nausea Time Seen by Provider: 09/07/20 03:30 Source: patient Mode of arrival: Ambulatory Limitations: no limitations History of Present Illness HPI narrative: 34-year-old male former smoker with the history of AFib, hypertension, asthma, BMI 63 presents with family in the chief complaint of 2 days of pounding heartbeat and palpitations that are reminiscent of prior episodes of AFib that required cardioversion. He has had no chest pain shortness of breath, dizziness, weakness or lightheadedness. He has no fever or chills. He denies any new medications or dietary change. He denies any recent travel, history of blood clot. Additionally he has had some nausea but denies any vomiting. MD complaint: rapid heart beat and heart racing Onset (ago): day(s) Duration: constant Severity: moderate Context: occurred during rest Arrhythmia history: atrial fibrillation Associated symptoms: nausea Related Data Home Medications Medication Instructions Recorded Confirmed hydroxyzine HCl 25 mg tablet 25 mg PO BID PRN 02/19/19 02/28/19 buspirone 15 mg PO DAILY 05/18/19 05/18/19 Previous Rx's Medication Instructions Recorded albuterol sulfate 90 mcg/actuation 2 puff INHALATION Q4-6H PRN #8.5 12/01/18 aerosol inhaler gram valsartan 160 1 tab PO DAILY #30 tab 12/01/18 mg-hydrochlorothiazide 25 mg tablet diclofenac sodium 1 % topical gel 2 gram TOP QID #100 gram 02/19/19 Allergies Allergy/AdvReac Type Severity Reaction Status Date / Time No Known Drug Allergies Allergy Verified 02/22/20 07:34 Review of Systems Constitutional Constitutional: Denies chills, Denies fatigue, Denies fever(s), Denies frequent falls, Denies lethargy and Denies weakness Eyes Eyes: Denies change in vision, Denies eye discharge, Denies irritation and Denies loss of vision ENT Ears, Nose, Mouth, and Throat: Denies change in voice, Denies dizziness, Denies neck pain, Denies sore throat and Denies throat swelling Cardiovascular Cardiovascular: Denies chest pain, Reports irregular heart rhythm, Denies lightheadedness, Reports palpitations, Denies dyspnea, Denies dyspnea on exertion and Denies orthopnea Respiratory Respiratory: Denies cough, Denies dyspnea, Denies dyspnea on exertion and Denies wheezing Gastrointestinal Gastrointestinal: Denies abdominal pain, Denies change in bowel habits, Denies diarrhea, Denies nausea and Denies vomiting Musculoskeletal Musculoskeletal: Denies neck pain and Denies numbness Integumentary/Breasts Skin/Breast: Denies pruritus, Denies erythema, Denies rash and Denies wounds Neurologic Neurologic: Denies behavioral changes, Denies confusion, Denies dizziness, Denies frequent falls, Denies loss of vision, Denies numbness and Denies weakness Psychiatric Psychiatric: Denies anxiety, Denies behavioral changes, Denies confusion, Denies depression, Denies homicidal ideation and Denies suicidal ideation Endocrine Endocrine: Denies fatigue, Denies flushing and Reports palpitations Hematologic/Lymphatic Hematologic/Lymphatic: Denies easy bruising Allergic/Immunologic Allergic/Immunologic: Denies urticaria, Denies throat swelling and Denies wheezing Patient History Medical History (Updated 09/07/20 @ 05:23 by Bradley Rose DO) Afib Anxiety Hypertension Social History Smoking Status: Former smoker Smoking Status: Former smoker alcohol intake frequency: holidays/special occasions only Substance Use Type: marijuana Exam Narrative Exam Narrative: GENERAL: [34] year old patient appears stated age. Well- nourished, well-developed patient, in mild distress. Anxious, 217 kg, BMI 63 HEAD: Atraumatic. Normocephalic. EYES: Pupils equal round and reactive. Extraocular motions intact. No scleral icterus. No injection or drainage. ENT: Nose without bleeding, purulent drainage. Throat without erythema, tonsillar hypertrophy or exudate. Airway patent. NECK: Trachea midline. Non tender CARDIOVASCULAR: Regular rate and rhythm without murmurs, gallops, or rubs. RESPIRATORY: Clear to auscultation. Breath sounds equal bilaterally. No wheezes, rales, or rhonchi. GASTROINTESTINAL: Abdomen soft, non-tender, nondistended. EXTREMITIES: No edema or joint tenderness. BACK: Nontender without deformity or crepitance. No flank tenderness. NEURO: AOx3. SKIN: No rash or erythema of visible areas Initial Vital Signs Initial Vital Signs: Vital Signs Pulse Rate 80 09/07/20 03:36 Pulse Oximetry 97 09/07/20 03:36 Course Orders Ordered: ED Orders 09/07/20 03:36 EKG-12 Lead Stat 09/07/20 03:53 Complete Blood Count AUTO DIFF Stat Comprehensive Metabolic Panel Stat Magnesium Stat NT-proBNP (BNP-Adult 18+) Stat Prothrombin Time INR Stat Troponin & CK Cardiac Panel Stat 09/07/20 04:37 EKG-12 Lead Stat Vital Signs Vital signs: Vital Signs - 8 hr 09/07/20 03:36 09/07/20 03:37 09/07/20 03:40 Temperature 97.9 F Pulse Rate 80 76 76 Respiratory Rate 13 20 Blood Pressure 140/73 140/73 Pulse Oximetry 97 97 97 09/07/20 04:00 09/07/20 04:11 09/07/20 04:30 Temperature Pulse Rate 63 63 62 Respiratory Rate 18 10 L 14 Blood Pressure 133/61 127/66 Pulse Oximetry 98 97 96 09/07/20 05:00 09/07/20 05:30 Temperature Pulse Rate 64 65 Respiratory Rate 21 12 Blood Pressure 131/82 117/70 Pulse Oximetry 98 98 MDM - Arrhythmia/Palpitations Lab Data Result diagrams: 09/07/20 03:53 09/07/20 03:53 Labs: Lab Results 09/07/20 09/07/20 09/07/20 Range/Units 03:53 03:53 03:53 WBC 10.3 (4.5-11.0) X10^3/uL RBC 4.73 (4.5-5.9) X10^6/uL Hgb 13.8 (13.5-17.5) g/dL Hct 41.1 (41-53) % MCV 87.0 (80-100) fL MCH 29.1 (26-34) PG MCHC 33.5 (30-36) % RDW 14.1 (11.6-14.8) % Plt Count 217 (150-400) X10^3/uL Neut % (Auto) 51.3 (50-75) % Lymph % (Auto) 36.3 (25-40) % [place] % (Auto) 8.5 (3-14) % Eos % (Auto) 2.7 (2-4) % Baso % (Auto) 1.2 (0-2) % Neut # (Auto) 5300 (2863-0208) /uL Lymph # (Auto) 3700 (6966-3485) /uL [place] # (Auto) 900 (0-900) /uL Eos # (Auto) 300 (0-450) /uL Baso # (Auto) 100 (0-100) /uL PT 13.4 H (10.1-12.7) SECONDS INR 1.2 (0.9-1.3) Sodium 136 L (137-145) mmol/L Potassium 3.8 (3.4-5.1) mmol/L Chloride 102 (98-107) mmol/L Carbon Dioxide 29 (22-32) mmol/L BUN 16 (9-20) mg/dL Creatinine 1.11 (0.66-1.25) mg/dL Estimated GFR > 60.0 (>60) mL/min BUN/Creatinine Ratio 14.4 (6-22) Glucose 108 H (70-100) mg/dL Calcium 9.1 (8.4-10.2) mg/dL Magnesium 1.8 (1.6-2.3) mg/dL Total Bilirubin 0.3 (0.2-1.3) mg/dL AST 21 (17-59) IU/L ALT 16 (<50) IU/L Alkaline Phosphatase 90 (38-126) U/L Total Creatine Kinase 82 (55-170) U/L CK-MB (CK-2) TNP CK-MB (CK-2) Rel Index TNP Troponin I < 0.012 (0.01-0.034) ng/mL NT-Pro-B Natriuret Pep 35 (<125) pg/mL Total Protein 6.6 (6.3-8.2) g/dL Albumin 3.8 (3.5-5.0) g/dL Globulin 2.8 (1.7-4.1) g/dL Albumin/Globulin Ratio 1.4 (1.0-2.8) ECG Data Interpretation: 1. Normal sinus rhythm with rate of 73, MT 184, QT 404, no ectopy or obvious occlusive signs such as ST segmental elevations, depressions or T-wave inversions. 2. unchanged MDM Narrative Medical decision making narrative: Multiple causes of chest pain considered including NV, PE, pneumothorax, pneumonia, aortic dissection, and pleurisy. Patient reports no radiation, no diaphoresis, no provocation with exertion, and no vomiting Patient's symptoms improved over duration of stay with above-stated therapies. Findings and discharge diagnosis discussed with patient/family followed by verbalization of understanding Return precautions discussed with patient/family whom verbalize understanding. Discharge Plan Departure Patient Disposition: Home Clinical Impression: Palpitations Instructions: DI for Palpitations Prescriptions: No Action albuterol sulfate 90 mcg/actuation HFA aerosol inhaler 2 puff INHALATION Q4-6H PRN (Reason: bronchospasm) Qty: 8.5 RF: 0 valsartan-hydrochlorothiazide 160-25 mg tablet 1 tab PO DAILY Qty: 30 RF: 0 hydroxyzine HCl 25 mg tablet 25 mg PO BID PRN (Reason: as directed) RF: 0 diclofenac sodium 1 % gel 2 gram TOP QID Qty: 100 RF: 0 buspirone 5 mg tablet 15 mg PO DAILY RF: 0
== END 2020-09-07 05:49 | disposition home or self-care (01) ==
PROVIDERS: Emergency Provider Emergency Medicine
DX: R00.2 Palpitations (principal)
CPT/HCPCS: 36415; 80053; 82550; 83735; 83880; 84484; 85025; 85610; 93005; 93010; 99283; 99284

== ENCOUNTER 2020-09-24 11:24 | Emergency (ER) | payer OTHER, MEDICAID, SELFPAY ==
[2020-09-24] VITALS (18 sets, daily range): BP systolic 130–153; BP diastolic 71–93; PULSE 66–93; RESP 9–32; TEMP 37.1; O2SAT 96–100; BMI 77.8
--- NOTE | 2020-09-24 11:27 | DI.RAD.S_ITS ---
PROCEDURE: XR CHEST 1V INDICATIONS: chest pain TECHNIQUE: One view of the chest was acquired. COMPARISON: None. FINDINGS: Surgical changes and devices: None. Lungs and pleura: Mild pulmonary vascular congestion is seen. No definite focal infiltrate. No pleural effusions or pneumothorax. Mediastinum: Mediastinal contours appear normal. Heart size is normal. Bones and chest wall: No suspicious bony lesions. Overlying soft tissues appear unremarkable. IMPRESSION: Mild congestion. No definite focal infiltrate, pleural effusion or pneumothorax. Dictated by: Michael Enamorado M.D. on 09/24/2020 at 12:40 Approved by: Michael Enamorado M.D. on 09/24/2020 at 12:41
--- NOTE | 2020-09-24 11:34 | ED.ARRPALP ---
HPI - Arrhythmia/Palpitations General Chief Complaint: Arrhythmia/Palpitations Stated Complaint: heart's in AFIB Time Seen by Provider: 09/24/20 11:27 Source: patient and family Mode of arrival: Ambulatory Limitations: no limitations History of Present Illness HPI narrative: 34-year-old male former smoker with the history of AFib, hypertension, asthma, BMI 63 presents with family in the chief complaint of rapid, irregular heartbeat that started about 15 minutes prior to arrival. He states that he feels the palpitations and feels slightly short of breath but denies any chest pain and is otherwise not dizzy, weak or lightheaded. He has had a bit of a dry and hacking cough for the past few days. He denies any fever or chills. He has had no nausea, vomiting or diarrhea. He denies any dietary or medication change. He has had no recent travel, history of cancer or blood clot. He was seen here and evaluated about 2 weeks ago for the same and had a reassuring workup. At that point time he had been complaining of 2 days of symptoms but was found to be in a normal sinus rhythm here in the department. MD complaint: rapid heart beat, heart racing, palpitations, irregular heart beat and atrial fibrillation Onset (ago): minute(s) Duration: constant Severity: moderate Context: occurred during rest Arrhythmia history: atrial fibrillation Associated symptoms: shortness of breath Related Data Home Medications Medication Instructions Recorded Confirmed hydroxyzine HCl 25 mg tablet 25 mg PO BID PRN 02/19/19 02/28/19 buspirone 15 mg PO DAILY 05/18/19 05/18/19 Previous Rx's Medication Instructions Recorded albuterol sulfate 90 mcg/actuation 2 puff INHALATION Q4-6H PRN #8.5 12/01/18 aerosol inhaler gram valsartan 160 1 tab PO DAILY #30 tab 12/01/18 mg-hydrochlorothiazide 25 mg tablet diclofenac sodium 1 % topical gel 2 gram TOP QID #100 gram 02/19/19 apixaban [Eliquis DVT-PE Treat 30D See Rx Instructions .ROUTE 09/24/20 Start] .COMPLEX #74 ea Allergies Allergy/AdvReac Type Severity Reaction Status Date / Time No Known Drug Allergies Allergy Verified 02/22/20 07:34 Review of Systems Constitutional Constitutional: Denies chills, Denies fatigue, Denies fever(s), Denies frequent falls, Denies lethargy and Denies weakness Eyes Eyes: Denies change in vision, Denies eye discharge, Denies irritation and Denies loss of vision ENT Ears, Nose, Mouth, and Throat: Denies change in voice, Denies dizziness, Denies neck pain, Denies sore throat and Denies throat swelling Cardiovascular Cardiovascular: Denies chest pain, Reports irregular heart rhythm, Denies lightheadedness, Reports palpitations, Reports dyspnea, Denies dyspnea on exertion and Denies orthopnea Respiratory Respiratory: Reports cough, Reports dyspnea, Denies dyspnea on exertion and Denies wheezing Gastrointestinal Gastrointestinal: Denies abdominal pain, Denies change in bowel habits, Denies diarrhea, Denies nausea and Denies vomiting Musculoskeletal Musculoskeletal: Denies neck pain and Denies numbness Integumentary/Breasts Skin/Breast: Denies pruritus, Denies erythema, Denies rash and Denies wounds Neurologic Neurologic: Denies behavioral changes, Denies confusion, Denies dizziness, Denies frequent falls, Denies loss of vision, Denies numbness and Denies weakness Psychiatric Psychiatric: Denies anxiety, Denies behavioral changes, Denies confusion, Denies depression, Denies homicidal ideation and Denies suicidal ideation Endocrine Endocrine: Denies fatigue, Denies flushing and Reports palpitations Hematologic/Lymphatic Hematologic/Lymphatic: Denies easy bruising Allergic/Immunologic Allergic/Immunologic: Denies urticaria, Denies throat swelling and Denies wheezing Patient History Medical History (Updated 09/24/20 @ 13:21 by Bradley Rose DO) Afib Anxiety Hypertension Social History Smoking Status: Former smoker Smoking Status: Former smoker alcohol intake frequency: holidays/special occasions only Substance Use Type: marijuana Exam Narrative Exam Narrative: GENERAL: [34] year old patient appears stated age. Well-nourished, well-developed patient, in mild distress. BMI 78, anxious HEAD: Atraumatic. Normocephalic. EYES: Pupils equal round and reactive. Extraocular motions intact. No scleral icterus. No injection or drainage. ENT: Nose without bleeding, purulent drainage. Throat without erythema, tonsillar hypertrophy or exudate. Airway patent. NECK: Trachea midline. Non tender CARDIOVASCULAR: Tachycardic and irregular but without murmurs, gallops, or rubs. RESPIRATORY: Clear to auscultation. Breath sounds equal bilaterally. No wheezes, rales, or rhonchi. GASTROINTESTINAL: Abdomen soft, non-tender, nondistended. EXTREMITIES: No edema or joint tenderness. BACK: Nontender without deformity or crepitance. No flank tenderness. NEURO: AOx3. SKIN: No rash or erythema of visible areas Initial Vital Signs Initial Vital Signs: Vital Signs Temperature 98.8 F 09/24/20 11:34 Pulse Rate 93 H 09/24/20 11:34 Respiratory Rate 24 09/24/20 11:34 Blood Pressure 144/87 H 09/24/20 11:34 Pulse Oximetry 97 09/24/20 11:34 Procedures Cardioversion Consent Signed: Yes Indication: Rapid, symptomatic atrial fibrillation Stability: Stable Number of attempts (shocks): 2 Joules used: 150 and 200 Cardiac rhythm post-cardioversion: Normal sinus rhythm Procedural Sedation Consent signed: Yes Time out performed: Yes Indication: cardioversion ASA Class: III Mallampati Airway Classification: Class IV Preparation: vehicle monitor technician applied, pulse oximeter, capnometry used, supplemental O2 applied, suction/airway equipment at bedside and IV secured IV Propofol dose (mg): 110 Intraservice time/total sedation time (min): 10 ED Sedation Level: Moderate (Concious) Patient Tolerated Procedure: Well Complications: none Course Course Course Narrative: I discussed this case with on-call Cardiology given his relatively low heart rate, lack of any ischemic change, and occurrence 2 weeks ago which lasted 2 days. We sure the opinion that he is safe for cardioversion and anticoagulation is indicated Orders Ordered: Discontinued Medications Apixaban (Apixaban 5 Mg Tablet) 5 mg PO NOW ONE Stop: 09/24/20 12:07 Last Admin: 09/24/20 12:16 Dose: 5 mg Documented by: ALETHEA Sodium Chloride (Normal Saline 0.9%) 1,000 mls @ 150 mls/hr IV CONT FRANC Last Infusion: 09/24/20 13:54 Dose: 0 mls/hr Documented by: Infusion: 09/24/20 13:54 Dose: 0 mls/hr Documented by: Admin: 09/24/20 12:17 Dose: 150 mls/hr Documented by: ALETHEA Propofol (Propofol 200 Mg/20 Ml Vial) 270 mg 1 mg/kg (270 mg) IV NOW ONE Stop: 09/24/20 12:24 Last Admin: 09/24/20 13:08 Dose: 150 mg Documented by: ALETHEA Vital Signs Vital signs: Vital Signs - 8 hr 09/24/20 11:34 Temperature 98.8 F Pulse Rate 93 H Respiratory Rate 24 Blood Pressure 144/87 H Pulse Oximetry 97 MDM - Arrhythmia/Palpitations Lab Data Result diagrams: 09/24/20 11:43 09/24/20 11:43 Labs: Lab Results 09/24/20 09/24/20 09/24/20 Range/Units 11:43 11:43 11:43 WBC 8.1 (4.5-11.0) X10^3/uL RBC 4.78 (4.5-5.9) X10^6/uL Hgb 13.9 (13.5-17.5) g/dL Hct 41.3 (41-53) % MCV 86.2 (80-100) fL MCH 29.1 (26-34) PG MCHC 33.8 (30-36) % RDW 14.3 (11.6-14.8) % Plt Count 230 (150-400) X10^3/uL Neut % (Auto) 53.8 (50-75) % Lymph % (Auto) 28.6 (25-40) % [place] % (Auto) 12.5 (3-14) % Eos % (Auto) 4.4 H (2-4) % Baso % (Auto) 0.7 (0-2) % Neut # (Auto) 4400 (3770-6283) /uL Lymph # (Auto) 2300 (7926-2634) /uL [place] # (Auto) 1000 H (0-900) /uL Eos # (Auto) 400 (0-450) /uL Baso # (Auto) 100 (0-100) /uL PT 12.5 (10.1-12.7) SECONDS INR 1.1 (0.9-1.3) APTT 32 (26.4-36.2) SECONDS D-Dimer 243 H (<230) ng/mL Sodium 135 L (137-145) mmol/L Potassium 4.0 (3.4-5.1) mmol/L Chloride 104 (98-107) mmol/L Carbon Dioxide 25 (22-32) mmol/L BUN 13 (9-20) mg/dL Creatinine 0.92 (0.66-1.25) mg/dL Estimated GFR > 60.0 (>60) mL/min BUN/Creatinine Ratio 14.1 (6-22) Glucose 95 (70-100) mg/dL Calcium 9.2 (8.4-10.2) mg/dL Magnesium 1.9 (1.6-2.3) mg/dL Total Bilirubin 0.3 (0.2-1.3) mg/dL AST 24 (17-59) IU/L ALT 15 (<50) IU/L Alkaline Phosphatase 112 (38-126) U/L Total Creatine Kinase 62 (55-170) U/L CK-MB (CK-2) TNP CK-MB (CK-2) Rel Index TNP Troponin I 0.028 (0.01-0.034) ng/mL Total Protein 6.6 (6.3-8.2) g/dL Albumin 3.7 (3.5-5.0) g/dL Globulin 2.9 (1.7-4.1) g/dL Albumin/Globulin Ratio 1.3 (1.0-2.8) Lipase 70 (23-300) U/L TSH (0.47-4.68) uIU/mL SARS-CoV-2 (PCR) (Negative) 09/24/20 09/24/20 09/24/20 Range/Units 11:43 11:43 12:00 WBC (4.5-11.0) X10^3/uL RBC (4.5-5.9) X10^6/uL Hgb (13.5-17.5) g/dL Hct (41-53) % MCV (80-100) fL MCH (26-34) PG MCHC (30-36) % RDW (11.6-14.8) % Plt Count (150-400) X10^3/uL Neut % (Auto) (50-75) % Lymph % (Auto) (25-40) % [place] % (Auto) (3-14) % Eos % (Auto) (2-4) % Baso % (Auto) (0-2) % Neut # (Auto) (1276-5035) /uL Lymph # (Auto) (5828-7854) /uL [place] # (Auto) (0-900) /uL Eos # (Auto) (0-450) /uL Baso # (Auto) (0-100) /uL PT (10.1-12.7) SECONDS INR (0.9-1.3) APTT (26.4-36.2) SECONDS D-Dimer (<230) ng/mL Sodium (137-145) mmol/L Potassium (3.4-5.1) mmol/L Chloride (98-107) mmol/L Carbon Dioxide (22-32) mmol/L BUN (9-20) mg/dL Creatinine (0.66-1.25) mg/dL Estimated GFR (>60) mL/min BUN/Creatinine Ratio (6-22) Glucose (70-100) mg/dL Calcium (8.4-10.2) mg/dL Magnesium 2.0 (1.6-2.3) mg/dL Total Bilirubin (0.2-1.3) mg/dL AST (17-59) IU/L ALT (<50) IU/L Alkaline Phosphatase (38-126) U/L Total Creatine Kinase (55-170) U/L CK-MB (CK-2) CK-MB (CK-2) Rel Index Troponin I (0.01-0.034) ng/mL Total Protein (6.3-8.2) g/dL Albumin (3.5-5.0) g/dL Globulin (1.7-4.1) g/dL Albumin/Globulin Ratio (1.0-2.8) Lipase (23-300) U/L TSH 1.63 (0.47-4.68) uIU/mL SARS-CoV-2 (PCR) Negative (Negative) Discharge Plan Departure Patient Disposition: Home Clinical Impression: Atrial fibrillation status post cardioversion Instructions: DI for Atrial Fibrillation Activity Restrictions/Additional Instructions: *You have been diagnosed with [atrial fibrillation status post cardioversion] *What to do: *Please continue to take your regular medications as directed. [x ] New medication prescriptions sent to your pharmacy: [[facility]] [ ] New medication written as a paper prescription [ ] No new medications given *Please follow up with your primary care provider in 2-3 days, call for an appointment. Let them know you were seen in the Emergency Department and that we ask that you be seen in follow up. We will electronically transmit a record of today's note if your PCP is in our system *If you do not have a primary care provider please contact [facility] Resource line at [phone]. They will ask some questions about your medical history and help get you set up with a doctor in the community. *Return to Emergency Department if you should have any new, worsening or concerning symptoms, such as [fever greater than 101 F, shaking chills, worsening pain, persistent vomiting or other bothersome symptoms] Prescriptions: New Eliquis DVT-PE Treat 30D Start 5 mg (74 tabs) tablets,dose pack See Rx Instructions .ROUTE .COMPLEX Qty: 74 RF: 0 No Action albuterol sulfate 90 mcg/actuation HFA aerosol inhaler 2 puff INHALATION Q4-6H PRN (Reason: bronchospasm) Qty: 8.5 RF: 0 valsartan-hydrochlorothiazide 160-25 mg tablet 1 tab PO DAILY Qty: 30 RF: 0 hydroxyzine HCl 25 mg tablet 25 mg PO BID PRN (Reason: as directed) RF: 0 diclofenac sodium 1 % gel 2 gram TOP QID Qty: 100 RF: 0 buspirone 5 mg tablet 15 mg PO DAILY RF: 0 Referrals: Conner Garsia DO [Primary Care Provider] - Tone Leslie MD [Physician] -
[2020-09-24 11:53] LABS: Add Manual Diff / Slide Review NO; Basophils Absolute Auto 100 /uL (0-100); Basophils Percent Auto 0.7 % (0-2); Eosinophils Absolute Auto 400 /uL (0-450); Eosinophils Percent Auto 4.4 % (2-4); Hematocrit 41.3 % (41-53); Hemoglobin 13.9 g/dL (13.5-17.5); Lymphocytes Absolute Auto 2300 /uL (1100-4500); Lymphocytes Percent Auto 28.6 % (25-40); Mean Corpuscular HGB Conc 33.8 % (30-36); Mean Corpuscular Hemoglobin 29.1 PG (26-34); Mean Corpuscular Volume 86.2 fL (80-100); Monocytes Absolute Auto 1000 /uL (0-900); Monocytes Percent Auto 12.5 % (3-14); Neutrophils Absolute Auto 4400 /uL (1500-7000); Neutrophils Percent Auto 53.8 % (50-75); Platelet Count 230 X10^3/uL (150-400); Red Blood Cell Count 4.78 X10^6/uL (4.5-5.9); Red Cell Distribution Width 14.3 % (11.6-14.8); White Blood Cell Count 8.1 X10^3/uL (4.5-11.0)
[2020-09-24 12:04] LABS: INR 1.1 (0.9-1.3); Prothrombin Time 12.5 SECONDS (10.1-12.7)
[2020-09-24 12:07] LABS: D Dimer 243 ng/mL (<230); PTT Partial Thromboplastin Tim 32 SECONDS (26.4-36.2)
[2020-09-24 12:11] LABS: Alanine Aminotransferase 15 IU/L (<50); Albumin 3.7 g/dL (3.5-5.0); Albumin Globulin Ratio 1.3 (1.0-2.8); Alkaline Phosphatase 112 U/L (38-126); Aspartate Aminotransferase 24 IU/L (17-59); BUN Creatinine Ratio 14.1 (6-22); Bilirubin Total 0.3 mg/dL (0.2-1.3); Blood Urea Nitrogen 13 mg/dL (9-20); Calcium 9.2 mg/dL (8.4-10.2); Carbon Dioxide 25 mmol/L (22-32); Chloride 104 mmol/L (98-107); Creatine Kinase 62 U/L (55-170); Estimated Glomerular Filt Rate > 60.0 mL/min (>60); Globulin 2.9 g/dL (1.7-4.1); Glucose 95 mg/dL (70-100); HEMOLYSIS < 15 (0-50); Lipase 70 U/L (23-300); Magnesium 1.9 mg/dL (1.6-2.3); Sodium 135 mmol/L (137-145); Total Protein 6.6 g/dL (6.3-8.2)
[2020-09-24] MEDS: APIXABAN 5 MG TABLET PO (12:16)
[2020-09-24] MEDS: SODIUM CHLORIDE 0.9% 1,000 ML 150 ML IV (12:17)
[2020-09-24 12:23] LABS: Troponin I 0.028 ng/mL (0.01-0.034)
[2020-09-24 12:30] LABS: COVID19 -Nasal RAPID Negative (Negative)
[2020-09-24 12:41] LABS: Thyroid Stimulating Hormone 1.63 uIU/mL (0.47-4.68)
[2020-09-24] MEDS: propofoL 200 MG/20 ML VIAL 270 MG IV (13:08)
--- NOTE | 2020-09-24 13:36 | PC.NURSE ---
patient tolerated procedural well. required a brief moment of jaw thrust to open airway. Patient now fully awake. denies any discomfort.
== END 2020-09-24 13:56 | disposition home or self-care (01) ==
PROVIDERS: Emergency Provider Emergency Medicine; PCP Family Medicine
DX: I48.91 Unspecified atrial fibrillation (principal); Z20.822 Contact with and (suspected) exposure to COVID-19
CPT/HCPCS: 36415; 71045; 80053; 82550; 83690; 83735; 84443; 84484; 85025; 85379; 85610; 85730; 87635; 92960; 93005; 93010; 96360; 96361; 99152; 99285; C9803; J2704